=== PATIENT | male | born 1935 | race Caucasian/White ===

== ENCOUNTER 2019-01-09 08:41 | Emergency (ER) | payer MEDICARE ==
[~2019-01-09] VITALS: Ht 177.8 cm; Wt 108.0 kg
[~2019-01-09 08:41] MED LIST: ALBU90I INH; ASPI325 PO; BUME2 PO; CHLO25B PO; CLOP75 PO; DOCU100 PO; FEBU40TA; FURO20 PO; GUAI600T33 PO; HYDR1TAB94 PO; ISODIN10; Isosorbide Dini30 MG PO; Isosorbide Mono30 MG PO; LANOXIN125 MCG PO; MECL12.5 PO; METO100ER PO; NEBI10 PO; NEBI5 PO; NITR.6SL SL; POTCHL10ER PO; PRED5 PO; Percocet PO; Transderm-Scop1 EACH TD; WARF2.5 PO; WARF5 PO
[2019-01-09] MEDS ORDERED: GABA100 (09:49)
[2019-01-09 10:28] LABS: BASOPHILS ABSOLUTE AUTO 0.02 K/mm3 (0.00-0.23); BASOPHILS PERCENT AUTO 0 % (0-2); EOSINOPHILS ABSOLUTE AUTO 0.24 K/mm3 (0.00-0.68); EOSINOPHILS PERCENT AUTO 3 % (0-6); Hematocrit 42.9 % (37.0-53.0); IMMATURE GRAN ABSOLUTE AUTO 0.03 K/mm3 (0.00-0.10); IMMATURE GRAN PERCENT AUTO 0 % (0-1); LYMPHOCYTES ABSOLUTE AUTO 1.78 K/mm3 (0.84-5.20); LYMPHOCYTES PERCENT AUTO 25 % (21-46); MONOCYTES ABSOLUTE AUTO 0.58 K/mm3 (0.16-1.47); MONOCYTES PERCENT AUTO 8 % (4-13); Mean Corpuscular HGB 30.3 pg (26.0-34.0); Mean Corpuscular HGB Conc 32.6 g/dL (31.5-36.5); Mean Corpuscular Volume 93 fL (80-100); Mean Platelet Volume 9.6 fL (9.1-12.4); NEUTROPHILS ABSOLUTE AUTO 4.39 K/mm3 (1.96-9.15); NEUTROPHILS PERCENT AUTO 62 % (41-73); Platelet Count 177 K/mm3 (150-400); RDW Coefficient Variation 13.6 % (11.7-14.2); RDW Standard Deviation 45.8 fL (35.1-46.3); Red Blood Cell Count 4.62 M/mm3 (4.30-5.90); White Blood Cell Count 7.04 K/mm3 (4.00-11.30)
[2019-01-09 10:47] LABS: Alanine Aminotransfer (ALT/SGP 23 U/L (12-78); Albumin, Blood 3.3 g/dL (3.4-5.0); Alk Phos 78 U/L (50-136); Anion Gap 6 mmol/L (6-16); Aspartate Aminotrans (AST/SGOT 25 U/L (12-37); Bilirubin, Total 0.6 mg/dL (0.1-1.0); Blood Urea Nitrogen 24 mg/dL (8-24); Bun/Creatinine Ratio 22.9 (12.0-20.0); CO2, Blood 28 mmol/L (21-32); Calcium, Blood 8.1 mg/dL (8.5-10.1); Chloride, Blood 106 mmol/L (98-108); Creatinine, Blood 1.05 mg/dL (0.60-1.20); Globulin, Blood 3.3 g/dL (2.2-4.0); Glomerular Filtration Rate >60 (60-); Glucose, Blood 84 mg/dL (70-99); Potassium, Blood 3.7 mmol/L (3.5-5.5); Sodium, Blood 140 mmol/L (136-145); Total Protein, Blood 6.6 g/dL (6.4-8.2)
[2019-01-09] MEDS ORDERED: Keflex500 MG PO (11:23)
== END 2019-01-09 12:02 | disposition home or self-care (01) ==
LOC: ER 08:41
PROVIDERS: Emergency Medicine
DX: R60.0 Localized edema (principal); L03.116 Cellulitis of left lower limb; I48.91 Unspecified atrial fibrillation; I10 Essential (primary) hypertension; I25.10 Atherosclerotic heart disease of native coronary artery without angina pectoris; Z91.048 Other nonmedicinal substance allergy status; Z88.5 Allergy status to narcotic agent; Z79.899 Other long term (current) drug therapy; Z79.01 Long term (current) use of anticoagulants; Z87.891 Personal history of nicotine dependence
CPT/HCPCS: 71046; 80053; 83880; 85025; 93005; 93010; 96374; 99284-25; J1940

== ENCOUNTER → 2019-02-08 | Outpatient (CLI) | payer MEDICARE ==
[~2019-02-08] MED LIST changes: +GABA100; +Keflex500 MG PO
== END | disposition home or self-care (01) ==
LOC: LAB SHORT 08:34 → PLD 08:34
DX: C44.319 Basal cell carcinoma of skin of other parts of face (principal)
CPT/HCPCS: 88305

== ENCOUNTER 2019-03-02 04:39 | Inpatient (IN) | payer MEDICARE ==
[~2019-03-02] VITALS: Ht 177.8 cm; Wt 106.7 kg
[2019-03-02 05:27] LABS: BASOPHILS ABSOLUTE AUTO 0.04 K/mm3 (0.00-0.23); BASOPHILS PERCENT AUTO 1 % (0-2); EOSINOPHILS ABSOLUTE AUTO 0.13 K/mm3 (0.00-0.68); EOSINOPHILS PERCENT AUTO 2 % (0-6); Hematocrit 46.3 % (37.0-53.0); Hemoglobin 15.3 g/dL (13.5-17.5); IMMATURE GRAN ABSOLUTE AUTO 0.02 K/mm3 (0.00-0.10); IMMATURE GRAN PERCENT AUTO 0 % (0-1); LYMPHOCYTES ABSOLUTE AUTO 2.34 K/mm3 (0.84-5.20); LYMPHOCYTES PERCENT AUTO 31 % (21-46); MONOCYTES ABSOLUTE AUTO 0.65 K/mm3 (0.16-1.47); MONOCYTES PERCENT AUTO 9 % (4-13); Mean Corpuscular HGB 30.4 pg (26.0-34.0); Mean Corpuscular Volume 92 fL (80-100); Mean Platelet Volume 9.8 fL (9.1-12.4); NEUTROPHILS ABSOLUTE AUTO 4.42 K/mm3 (1.96-9.15); NEUTROPHILS PERCENT AUTO 58 % (41-73); Platelet Count 153 K/mm3 (150-400); RDW Coefficient Variation 13.6 % (11.7-14.2); RDW Standard Deviation 46.4 fL (35.1-46.3); Red Blood Cell Count 5.03 M/mm3 (4.30-5.90)
[2019-03-02 05:37] LABS: Alanine Aminotransfer (ALT/SGP 22 U/L (12-78); Albumin, Blood 3.7 g/dL (3.4-5.0); Albumin/Globulin Ratio 1.2 (0.8-1.8); Alk Phos 119 U/L (50-136); Anion Gap 6 mmol/L (6-16); Aspartate Aminotrans (AST/SGOT 24 U/L (12-37); Bilirubin, Total 0.5 mg/dL (0.1-1.0); Blood Urea Nitrogen 19 mg/dL (8-24); Bun/Creatinine Ratio 17.4 (12.0-20.0); CO2, Blood 29 mmol/L (21-32); Calcium, Blood 8.7 mg/dL (8.5-10.1); Chloride, Blood 107 mmol/L (98-108); Creatinine, Blood 1.09 mg/dL (0.60-1.20); Globulin, Blood 3.2 g/dL (2.2-4.0); Glomerular Filtration Rate >60 (60-); Glucose, Blood 102 mg/dL (70-99); Potassium, Blood 3.9 mmol/L (3.5-5.5); Sodium, Blood 142 mmol/L (136-145); Total Protein, Blood 6.9 g/dL (6.4-8.2)
[2019-03-02 07:11] LABS: International Normalized Ratio 3.06; Prothrombin Time Results 29.3 Sec (9.7-11.5)
[2019-03-02 13:26] LABS: Source, Urine Clean Catch
[2019-03-02 13:30] LABS: Appearance, Urine Clear (Clear); Bilirubin, Urine Neg (Neg); Blood, Urine Neg (Neg); Color, Urine Yellow (P-Yellow); Glucose Qualitative, Urine Neg (Neg); Ketones, Urine Neg (Neg); Leukocyte Esterase, Urine Neg (Neg); Nitrite, Urine Neg (Neg); Protein, Urine Neg (Neg); Urobilinogen, Urine NORM (Normal)
[2019-03-03 05:15] LABS: Hemoglobin 14.9 g/dL (13.5-17.5); Mean Corpuscular HGB 29.8 pg (26.0-34.0); Mean Corpuscular HGB Conc 32.4 g/dL (31.5-36.5); Mean Corpuscular Volume 92 fL (80-100); Mean Platelet Volume 9.6 fL (9.1-12.4); Platelet Count 142 K/mm3 (150-400); RDW Coefficient Variation 13.7 % (11.7-14.2); RDW Standard Deviation 46.1 fL (35.1-46.3); White Blood Cell Count 8.03 K/mm3 (4.00-11.30)
[2019-03-03 05:35] LABS: Albumin, Blood 3.6 g/dL (3.4-5.0); Albumin/Globulin Ratio 1.2 (0.8-1.8); Bilirubin, Total 1.2 mg/dL (0.1-1.0); Bun/Creatinine Ratio 10.3 (12.0-20.0); Calcium, Blood 8.3 mg/dL (8.5-10.1); Creatinine, Blood 1.26 mg/dL (0.60-1.20); Potassium, Blood 3.6 mmol/L (3.5-5.5); Total Protein, Blood 6.6 g/dL (6.4-8.2)
--- NOTE | 2019-03-03 06:50 | NUR ---
SHIFT SUMMARY: PT A&O X4, VS WNL. DENIES PAIN AND N/V THROUGHOUT SHIFT. ABX AND FLUIDS INFUSING. PT MARILU LIQUIDS. OOB TO BRP WITH CANE. MINIMAL ASSISTANCE. CT SCAN THIS MORNING COMPLETE.
--- NOTE | 2019-03-03 11:01 | NUR ---
Patient is lying in bed and alert, spouse, Joyce bedside. Patient openly shares about his medical history, his family/life history and his spiritual journey through the years. Patient seems to be in no spiritual/emotional distress but appeared to greatly enjoy conversation centered around God. I listened empathically, normalized patient's experience and provided prayer. Pateint responded well and showed signs of an elevated mood.
--- NOTE | 2019-03-03 18:32 | NUR ---
SHIFT SUMMARY PATIENT TOLERATING REG DIET TODAY W/O INCREASE IN PAIN OR NAUSEA. UP TO SHOWER. VOIDING. + FLATUS. DENIES NEED FOR PAIN MED. IN ROOM. NO C/O AT THIS TIME.
--- NOTE | 2019-03-04 07:07 | NUR ---
SHIFT SUMMARY PT RESTED WELL T/O NIGHT. AAOX4. TOLERATING DIET WELL. DENIES PAIN/NAUSEA. SBA TO AMBULATE IN ROOM. GOOD PO INTAKE + OUTPUT, IVF + ABX PER ORDERS. CALL LIGHT IN REACH. NO ACUTE CHANGES.
[2019-03-04] MEDS ORDERED: LEVFLO500 PO (10:32)
--- NOTE | 2019-03-04 11:15 | NUR ---
PATIENT D/C'D HOME WITH SPOUSE AT THIS TIME; BOTH STATE UNDERSTANDING OF MEDS, F/U APPT, CALL FOR CONCERNS. RX CALLED TO [facility]. NO ACUTE CHANGES OR C/O AT THIS TIME.
== END 2019-03-04 11:18 | disposition home or self-care (01) | DRG 395 ==
LOC: ER 04:39 → SURS 04:40
PROVIDERS: Emergency Medicine; ADMIT Internal Medicine
DX: K66.8 Other specified disorders of peritoneum (principal); I25.2 Old myocardial infarction; I48.91 Unspecified atrial fibrillation; I35.0 Nonrheumatic aortic (valve) stenosis; I10 Essential (primary) hypertension; I25.10 Atherosclerotic heart disease of native coronary artery without angina pectoris; Z79.01 Long term (current) use of anticoagulants
CPT/HCPCS: 36415; 74176; 74177; 80053; 81003; 85025; 85027; 85610; 96365; 96367; 96375; 99285-25; J0295; J1650; J2543; J3010; J7030; J7050; Q9967

== ENCOUNTER 2020-07-17 16:14 | Emergency (ER) | payer MEDICARE ==
[~2020-07-17] VITALS: Ht 177.8 cm; Wt 99.8 kg
[~2020-07-17 16:14] MED LIST changes: +LEVFLO500 PO; +LIDO700A20 TOP
[2020-07-17] MEDS ORDERED: VENLAFAXINE HC225 MG PO (16:47)
[2020-07-17 19:31] LABS: BASOPHILS ABSOLUTE AUTO 0.03 K/mm3 (0.00-0.23); BASOPHILS PERCENT AUTO 0 % (0-2); EOSINOPHILS ABSOLUTE AUTO 0.03 K/mm3 (0.00-0.68); EOSINOPHILS PERCENT AUTO 0 % (0-6); Hematocrit 47.8 % (37.0-53.0); Hemoglobin 16.3 g/dL (13.5-17.5); IMMATURE GRAN ABSOLUTE AUTO 0.06 K/mm3 (0.00-0.10); IMMATURE GRAN PERCENT AUTO 0 % (0-1); LYMPHOCYTES ABSOLUTE AUTO 1.69 K/mm3 (0.84-5.20); LYMPHOCYTES PERCENT AUTO 12 % (21-46); MONOCYTES PERCENT AUTO 6 % (4-13); Mean Corpuscular HGB 31.4 pg (26.0-34.0); Mean Corpuscular HGB Conc 34.1 g/dL (31.5-36.5); Mean Corpuscular Volume 92 fL (80-100); Mean Platelet Volume 9.9 fL (9.1-12.4); NEUTROPHILS ABSOLUTE AUTO 11.52 K/mm3 (1.96-9.15); NEUTROPHILS PERCENT AUTO 82 % (41-73); Platelet Count 179 K/mm3 (150-400); RDW Coefficient Variation 12.7 % (11.7-14.2); RDW Standard Deviation 43.1 fL (35.1-46.3); Red Blood Cell Count 5.19 M/mm3 (4.30-5.90); White Blood Cell Count 14.13 K/mm3 (4.00-11.30)
[2020-07-17 19:47] LABS: International Normalized Ratio 2.26; Prothrombin Time Results 23.1 Sec (9.7-11.5)
[2020-07-17 19:54] LABS: Alanine Aminotransfer (ALT/SGP 28 U/L (12-78); Albumin, Blood 3.8 g/dL (3.4-5.0); Albumin/Globulin Ratio 1.1 (0.8-1.8); Alk Phos 92 U/L (50-136); Anion Gap 5 mmol/L (6-16); Aspartate Aminotrans (AST/SGOT 27 U/L (12-37); Bilirubin, Total 0.7 mg/dL (0.1-1.0); Blood Urea Nitrogen 22 mg/dL (8-24); Bun/Creatinine Ratio 19.5 (12.0-20.0); CO2, Blood 30 mmol/L (21-32); Calcium, Blood 8.8 mg/dL (8.5-10.1); Chloride, Blood 106 mmol/L (98-108); Creatinine, Blood 1.13 mg/dL (0.60-1.20); Globulin, Blood 3.6 g/dL (2.2-4.0); Glomerular Filtration Rate >60 (60-); Glucose, Blood 109 mg/dL (70-99); Potassium, Blood 4.2 mmol/L (3.5-5.5); Sodium, Blood 141 mmol/L (136-145); Total Protein, Blood 7.4 g/dL (6.4-8.2); Troponin I <0.015 ng/mL (0.000-0.040)
[2020-07-17] MEDS ORDERED: Percocet 5-3251 EACH PO (21:56)
== END 2020-07-17 23:50 | disposition home or self-care (01) ==
LOC: ER 16:14
PROVIDERS: Emergency Medicine
DX: S22.32XA Fracture of one rib, left side, initial encounter for closed fracture (principal); Z79.899 Other long term (current) drug therapy; Z91.09 Other allergy status, other than to drugs and biological substances; Z88.5 Allergy status to narcotic agent; Z79.02 Long term (current) use of antithrombotics/antiplatelets; Z79.01 Long term (current) use of anticoagulants; W17.89XA Other fall from one level to another, initial encounter; Y93.89 Activity, other specified; Y92.003 Bedroom of unspecified non-institutional (private) residence as the place of occurrence of the external cause
CPT/HCPCS: 70450; 71101; 71260; 74177; 80053; 80162; 83735; 84484; 85025; 85610; 93005; 93010; 96374-59; 99284-25; A9270; J1170; Q9967

== ENCOUNTER 2020-09-19 10:52 | Inpatient (IN) | payer MEDICARE ==
[~2020-09-19] VITALS: Ht 177.8 cm; Wt 99.7 kg
[~2020-09-19 10:52] MED LIST changes: -FEBU40TA; -FURO20 PO; +FURO40 PO; +Percocet 5-3251 EACH PO; +Uloric80 MG PO; +VENLAFAXINE HC225 MG PO
[2020-09-19 11:19] LABS: Source, Urine Voided
[2020-09-19 11:28] LABS: Appearance, Urine Clear (Clear); Bilirubin, Urine Neg (Neg); Blood, Urine 2+ (Neg); Color, Urine Yellow (P-Yellow); Glucose Qualitative, Urine Neg (Neg); Ketones, Urine Neg (Neg); Leukocyte Esterase, Urine 1+ (Neg); Nitrite, Urine Neg (Neg); Protein, Urine 4+ (Neg); Specific Gravity, Urine 1.015 (1.003-1.022); Urobilinogen, Urine 2+ (Normal)
[2020-09-19] MEDS ORDERED: MECL25 PO (11:38)
[2020-09-19 11:43] LABS: Alanine Aminotransfer (ALT/SGP 25 U/L (12-78); Albumin, Blood 3.3 g/dL (3.4-5.0); Alk Phos 88 U/L (50-136); Anion Gap 6 mmol/L (6-16); Aspartate Aminotrans (AST/SGOT 30 U/L (12-37); Bilirubin, Total 0.8 mg/dL (0.1-1.0); Blood Urea Nitrogen 21 mg/dL (8-24); Bun/Creatinine Ratio 19.1 (12.0-20.0); CO2, Blood 26 mmol/L (21-32); Calcium, Blood 8.4 mg/dL (8.5-10.1); Chloride, Blood 109 mmol/L (98-108); Globulin, Blood 3.3 g/dL (2.2-4.0); Glomerular Filtration Rate >60 (60-); Glucose, Blood 104 mg/dL (70-99); International Normalized Ratio 1.73; Potassium, Blood 4.1 mmol/L (3.5-5.5); Prothrombin Time Results 17.9 Sec (9.7-11.5); Sodium, Blood 141 mmol/L (136-145); Total Protein, Blood 6.6 g/dL (6.4-8.2); Troponin I 0.039 ng/mL (0.000-0.040)
[2020-09-19 11:48] LABS: Bacteria Few /hpf; Squamous Epithelial Cells Not Seen /hpf (Few)
[2020-09-19 12:03] LABS: BASOPHILS ABSOLUTE AUTO 0.01 K/mm3 (0.00-0.23); BASOPHILS PERCENT AUTO 0 % (0-2); EOSINOPHILS PERCENT AUTO 0 % (0-6); Hematocrit 43.6 % (37.0-53.0); Hemoglobin 14.3 g/dL (13.5-17.5); IMMATURE GRAN ABSOLUTE AUTO 0.01 K/mm3 (0.00-0.10); IMMATURE GRAN PERCENT AUTO 0 % (0-1); LYMPHOCYTES ABSOLUTE AUTO 0.57 K/mm3 (0.84-5.20); LYMPHOCYTES PERCENT AUTO 10 % (21-46); MONOCYTES ABSOLUTE AUTO 0.47 K/mm3 (0.16-1.47); MONOCYTES PERCENT AUTO 8 % (4-13); Mean Corpuscular HGB 30.6 pg (26.0-34.0); Mean Corpuscular HGB Conc 32.8 g/dL (31.5-36.5); Mean Corpuscular Volume 93 fL (80-100); Mean Platelet Volume 10.4 fL (9.1-12.4); NEUTROPHILS ABSOLUTE AUTO 4.56 K/mm3 (1.96-9.15); NEUTROPHILS PERCENT AUTO 81 % (41-73); Platelet Count 87 K/mm3 (150-400); RDW Standard Deviation 44.4 fL (35.1-46.3); Red Blood Cell Count 4.67 M/mm3 (4.30-5.90); White Blood Cell Count 5.62 K/mm3 (4.00-11.30)
[2020-09-19 15:44] LABS: Influenza A, PCR Negative (NEGATIVE); Influenza B, PCR Negative (NEGATIVE); Resp Syncytial Virus, PCR Negative (NEGATIVE); SARS-Cov-2 (COVID-19) PCR, MMC Positive (NEGATIVE)
[2020-09-19] MEDS ORDERED: LANOXIN125 MCG PO (16:02)
[2020-09-19] MEDS ORDERED: Venlafaxine HC150 MG PO (16:02)
[2020-09-19] MEDS ORDERED: Potassium Chlo20 ME1 PO (16:03)
[2020-09-19] MEDS ORDERED: WARF5 PO (16:03)
--- NOTE | 2020-09-19 18:34 | NUR ---
CALLED ED AND RECIEVED TELEPHONE REPORT ON PT. AWAITING PT ARRIVAL. CALLED CERTIFIED TOWER CLIMBER PT WILL NEED THE DOOR CLOSED AND HAS Hx DEMENTIA WITH WEAKNESS OK TO PUT PT ON THE MONITORS FOR FALL RISK.
--- NOTE | 2020-09-19 19:23 | NUR ---
MIRTA ARRIVED TO THE FLOOR DURING SHIFT CHANGE, IS AT BEDSIDE. MIRTA ARRIVED VIA GURNEY AND WAS TRANSFERED TO BED USING A SLIDER SHEET. PER MIRTA HAS NOT BEEN FEELING WELL, SLOWING DOWN, POOR APPETITE, TO NOT EATING, LITTLE TO DRINK. CHANGE IN TASTE BUDS, COUGH DEVELOPED ON THURSDAY, SO SHE GOT AN APPOINTMENT WITH THE DOCTOR. HE ALSO HAS BECAME INCONTIENT WHICH IS ALSO ABNORMAL. THIS MORNING SHE WAS GETTING HIM OUT OF BED, WHEN HE COULD NOT GET UP, THEY TRIED SEVERAL TIMES TO THE POINT HE JUST SLIDE DOWN HER AND ONTO THE FLOOR. SHE CALLED THE AMBULANCE. HE HAS PNEUMONIA AND COVID-19. ISOLATION WAS SET UP PRIOR TO HIS ARRIVAL. IS VERY SUPPORTIVE AND AFRAID SHE MIGHT LOSE HIM. SHE DOES PLAN ON GETTING CHECKED BY HER DOCTOR THIS WEEK, SHE IS NOT SHOWING ANY SIGNS. MIRTA IS ALERT TO SELF, FAMILY AND FOLLOWS DIRECTION. HISTORY OF DEMENTIA. FACE IS FLUSHED. SKIN IS WARM TO THE TOUCH. LUNG SOUNDS ARE COURSE T/O. SOB, COUGH IS PRODUCTIVE BUT HE IS NOT GETTING IT ALL THE WAY OUT. RESP ARE SHALLOW AND RATTLING. HEART MURMUR NOTED. ABDOMIN SOFT, BT HYPOACTIVE. MILD ENEMA IN BLE. PRE KINDERGARTEN TEACHER AND FLEXTION WEAK ALL 4 EXTREMITITES. WILL BE BACK TOMORROW TO SEE HIM. ON CAMERA, BED ALARM ON, AND CALL LIGHT IN REACH.
[2020-09-20] MEDS ORDERED: Isosorbide Mono30 MG PO (01:49)
[2020-09-20] MEDS ORDERED: NITR.4SL SL (01:49)
[2020-09-20] MEDS ORDERED: Percocet 5-3251 EACH PO (01:50)
[2020-09-20] MEDS ORDERED: MECL25 PO (01:51)
[2020-09-20 05:26] LABS: BASOPHILS ABSOLUTE AUTO 0.02 K/mm3 (0.00-0.23); BASOPHILS PERCENT AUTO 0 % (0-2); EOSINOPHILS PERCENT AUTO 0 % (0-6); Hematocrit 47.1 % (37.0-53.0); IMMATURE GRAN ABSOLUTE AUTO 0.02 K/mm3 (0.00-0.10); IMMATURE GRAN PERCENT AUTO 0 % (0-1); LYMPHOCYTES ABSOLUTE AUTO 1.27 K/mm3 (0.84-5.20); LYMPHOCYTES PERCENT AUTO 25 % (21-46); MONOCYTES ABSOLUTE AUTO 0.72 K/mm3 (0.16-1.47); MONOCYTES PERCENT AUTO 14 % (4-13); Mean Corpuscular HGB 30.5 pg (26.0-34.0); Mean Corpuscular HGB Conc 31.8 g/dL (31.5-36.5); Mean Corpuscular Volume 96 fL (80-100); Mean Platelet Volume 10.5 fL (9.1-12.4); NEUTROPHILS ABSOLUTE AUTO 3.04 K/mm3 (1.96-9.15); NEUTROPHILS PERCENT AUTO 60 % (41-73); Platelet Count 83 K/mm3 (150-400); RDW Coefficient Variation 13.1 % (11.7-14.2); RDW Standard Deviation 46.5 fL (35.1-46.3); Red Blood Cell Count 4.91 M/mm3 (4.30-5.90); White Blood Cell Count 5.07 K/mm3 (4.00-11.30)
[2020-09-20 05:37] LABS: PCO2 Arterial 39.3 mmHg (35-45); PO2 Arterial 75.3 mmHg (80-100); pH Blood Arterial 7.42 (7.35-7.45)
[2020-09-20 05:44] LABS: Anion Gap 5 mmol/L (6-16); Blood Urea Nitrogen 21 mg/dL (8-24); Bun/Creatinine Ratio 20.4 (12.0-20.0); CO2, Blood 30 mmol/L (21-32); Calcium, Blood 8.3 mg/dL (8.5-10.1); Chloride, Blood 106 mmol/L (98-108); Creatinine, Blood 1.03 mg/dL (0.60-1.20); Glomerular Filtration Rate >60 (60-); Glucose, Blood 68 mg/dL (70-99); Potassium, Blood 3.6 mmol/L (3.5-5.5); Sodium, Blood 141 mmol/L (136-145)
[2020-09-20 05:45] LABS: International Normalized Ratio 1.72; Prothrombin Time Results 17.8 Sec (9.7-11.5)
--- NOTE | 2020-09-20 07:40 | NUR ---
SHIFT SUMMARY: MIRTA IS ALERT, FOLLOWS DIRECTION AND DID REMEMBER HE WAS IN THE HOSPITAL BUT DOES NOT KNOW WHY. HE FOREGETS HE HAS TO CALL TO GET UP THAT HE IS TO WEAK TO STAND. CAMERA LETS US KNOW WHEN HE STARTS SWINGING HIS LEG OVER AND WERE ABLE TO OPEN THE DOOR TO LET HIM KNOW WE ARE COMING, AND HE STAYS IN BED. CONTIENT/INCONTIENT OF URINE. VERY CONCERTRATED URINE, DARK ORANGE AND URINATES ONLY 100-200 AT A TIME. SOME OF THE TIME HE IS NOT ABLE TO GO OTHER THEN DRIBBLES. LUNG SOUNDS COURSE T/O, COUGH IS MOIST BUT NOT PRODUCTIVE, UNABLE TO GET IT ALL THE WAY OUT. POOR APPETITE, SEVERE WEAKNESS IN EXTREMITIES. YEAST RASH NOTED IN GROIN, WILL NEED NYSTATIN, ORANGE ZINC CREAM APPLIED. BILATERAL CALF'S AND FEET AREA PURPLE AND COLD TO TOUCH BUT HAS GOOD PULSES. OXYGEN REMAINED ON 2 LITERS THIS SHIFT, VITALS WERE STABLE, AFEBRILE. ORAL CARE WAS PROVIDED AND SIPS OF WATER WERE GIVEN. REPOSITIONED EVERY 2 HOURS. FOLLOWS DIRECTION WELL. REPORT GIVEN TO DAY SHIFT. CALL LIGHT IS IN REACH, HE FORGETS TO USE IT. BED ALARM IS ON AND CAMERA ON.
--- NOTE | 2020-09-20 16:24 | NUR ---
PT HAS SHOWN AN INCREASE IN ORIENTATION TODAY. COVID POSSITIVE SO CARE IS BEING GROUPED WHEN POSSIBLE. PT FREQUENTLY TRIES TO GET OUT OF BED BED ALARM AND CAMERA MONITORING FOR SAFETY. PT PLACED IN CHAIR WITH SPOUSE AT HIS SIDE BY PT/OT. PT TRANSFERED HIMSELF BACK TO BED SPOUSE JUST WATCHED, PER CAMERA PUBLICATIONS EDITOR. CHAIR ALARM NEEDED FOR SAFETY. WILL PLACE ON IN THE ROOM FOR FUTURE USE. PT SPOUSE HAS BEEN AT HIS SIDE FOR MOST OF THE DAY, SHE JUST LEFT FOR A DR APPOINTMENT AND WILL BE BACK SOON. PT SEEMS MORE ORINETED WHEN THE SPOUSE IS PRESENT TO ANCHOR HIM. IV LINES OBSCURED WITH COBAN PT HAS DECIDED SOMEONE SAID THEY WOULD TAKE THOSE OUT. HE HAS PULLED AT THE DRESSINGS A LITTLE. PT IS CURRENTLY IN BED, CALL LIGHT IN REACH, BED ALARM AND CAMER FOR SAFETY. PT HAS BEEN AGREEABLE WITH ALL CARE. AT ONE POINT THIS MORNING THE PT SEEMED TO BE BREATHING FAST EVEN AND SHALLOW BREATHS. RT CAME AND EVALUATED THE PT ALL OTHER VITALS STABLE. NO S&S OF DISTREE HAVE BEEN NOTED T/O THE DAY SOMETIMES PT RESP RATE IS ELEVATED BUT SATS MAINTAIN ON 2L O2 VIA NC. WILL CTM AND PASS ON IN REPORT TO NIGHT RN.
--- NOTE | 2020-09-20 19:42 | NUR ---
recieved a call from the pt spouse she just tested positive for covid and is no longer allowed to visit. pt informed that his can not visit because the rules do not allow her to visit now.
[2020-09-21 05:10] LABS: Hematocrit 45.8 % (37.0-53.0); Hemoglobin 15.4 g/dL (13.5-17.5); Mean Corpuscular HGB 31.1 pg (26.0-34.0); Mean Corpuscular HGB Conc 33.6 g/dL (31.5-36.5); Mean Corpuscular Volume 93 fL (80-100); Mean Platelet Volume 9.9 fL (9.1-12.4); Platelet Count 93 K/mm3 (150-400); RDW Coefficient Variation 12.7 % (11.7-14.2); RDW Standard Deviation 43.5 fL (35.1-46.3); Red Blood Cell Count 4.95 M/mm3 (4.30-5.90); White Blood Cell Count 3.88 K/mm3 (4.00-11.30)
[2020-09-21 05:27] LABS: International Normalized Ratio 2.34; Prothrombin Time Results 23.9 Sec (9.7-11.5)
[2020-09-21 05:32] LABS: Anion Gap 6 mmol/L (6-16); Blood Urea Nitrogen 28 mg/dL (8-24); Bun/Creatinine Ratio 24.3 (12.0-20.0); CO2, Blood 28 mmol/L (21-32); Calcium, Blood 8.4 mg/dL (8.5-10.1); Chloride, Blood 105 mmol/L (98-108); Creatinine, Blood 1.15 mg/dL (0.60-1.20); Glomerular Filtration Rate >60 (60-); Glucose, Blood 114 mg/dL (70-99); Phosphorus, Blood 3.1 mg/dL (2.5-4.9); Potassium, Blood 4.1 mmol/L (3.5-5.5); Sodium, Blood 139 mmol/L (136-145)
--- NOTE | 2020-09-21 06:53 | NUR ---
09/21/20 0545 PT PLEASANTLY CONFUSED THIS SHIFT. COOPERATIVE AND DENIES ANY DISCOMFORT OR S/S. VITALS STABLE. TURNED Q 2 HOURS. PT KEPT TAKING OFF 02 AT 2LPN VIA N/C. THIS AM, O2 SATS WERE 94% ON ROOM AIR. O2 KEPT OFF. INCONTINENT OF URINE AND OCC. CONTINENT IN URINAL. TAKING ORAL INTAKE WELL. ISOLATION MAINTAINED.
--- NOTE | 2020-09-21 18:36 | NUR ---
SHIFT SUMMARY. A&OX3, PLEASANT AND COOPERATIVE WITH CARE, ONE ASSIST TO BATHROOM. IMPULSIVE AT TIMES, BED AND CHAIR ALARM UTILIZED FOR SAFETY. PT DENIES PAIN, SOB, N/V. GOOD ORAL INTAKE. NO NEW CHANGES OR CONCERNS.
[2020-09-22 05:23] LABS: International Normalized Ratio 2.8; Prothrombin Time Results 28.3 Sec (9.7-11.5)
--- NOTE | 2020-09-22 18:15 | NUR ---
SHIFT SUMMARY PATIENT DENIES PAIN, NAUSEA, AND SHORTNESS OF BREATH. PATIENT INTERMITTENTLY CONFUSED BUT PLEASANT AND COOPERATIVE WITH CARE. WORKED WITH PT, UP SBA W/FWW TO BR. EATING AND DRINKING WELL.
[2020-09-23 05:35] LABS: International Normalized Ratio 3.49; Prothrombin Time Results 34.8 Sec (9.7-11.5)
--- NOTE | 2020-09-23 06:28 | NUR ---
BREASTER SUMMARY Patient OOB around 5 times last night to urinate. each time setting off alarm. staff find patient trying to stand independently while trying to push off night table. Patient very agreeable, but has extreme urge incontinence and tries to ush past us each time on unsteady feet towards bathroom. No complaints of pain or discomfort. but obviously SOB by the time he gets back from the toilet. Lung sounds still coarse on Room Air, but definately sound improved.
--- NOTE | 2020-09-23 16:19 | NUR ---
SHIFT SUMMARY PATIENT DENIES PAIN, NAUSEA, AND SHORTNESS OF BREATH. PATIENT UP SBA W/FWW TO BR. EATING AND DRINKING WELL. PLEASANTLY CONFUSED. POSSIBLE DISCHARGE TOMORROW.
[2020-09-24 05:14] LABS: International Normalized Ratio 3.13; Prothrombin Time Results 31.4 Sec (9.7-11.5)
--- NOTE | 2020-09-24 07:42 | NUR ---
TRUCK RENTAL CLERK SUMMARY Maynor slept well overnight, getting up with staff and using call light to ask staff to walk with him to bathroom. Still gets very SOB with minimal exertion, but 02 SAT remains above 90%. No complaints of pain. Pleasant and cooperative with care.
--- NOTE | 2020-09-24 16:08 | NUR ---
DISCHARGE DISCHARGE MEDICATIONS AND INSTRUCTIONS EXPLAINED TO PATIENT. PATIENT'S UPDATED VIA PHONE. PCP FOLLOW UP SCHEDULED. IV REMOVED WITHOUT DIFFICULTY. BELONGINGS WT PATIENT. PATIENT TRANSFERED TO PRIVATE VEHICLE VIA WHEELCHAIR.
== END 2020-09-24 16:03 | disposition home health service (06) | DRG 177 ==
LOC: ER 10:52 → MEDS 10:54
PROVIDERS: Emergency Medicine; ADMIT Internal Medicine
PROC: XW033E5 Introduction of Remdesivir Anti-infective into Peripheral Vein, Percutaneous Approach, New Technology Group 5 (ICD-10-PCS; principal; 2020-09-19)
DX: U07.1 COVID-19 (principal); J96.01 Acute respiratory failure with hypoxia; I48.20 Chronic atrial fibrillation, unspecified; I50.32 Chronic diastolic (congestive) heart failure; I11.0 Hypertensive heart disease with heart failure; Z66 Do not resuscitate; D69.6 Thrombocytopenia, unspecified; E66.9 Obesity, unspecified; F03.90 Unspecified dementia, unspecified severity, without behavioral disturbance, psychotic disturbance, mood disturbance, and anxiety; F32.9 Major depressive disorder, single episode, unspecified; I25.10 Atherosclerotic heart disease of native coronary artery without angina pectoris; I35.0 Nonrheumatic aortic (valve) stenosis; Z86.718 Personal history of other venous thrombosis and embolism; Z87.891 Personal history of nicotine dependence; Z79.01 Long term (current) use of anticoagulants; Z95.5 Presence of coronary angioplasty implant and graft; Z68.30 Body mass index [BMI] 30.0-30.9, adult
CPT/HCPCS: 0241U; 36415; 36600; 71045; 80048; 80053; 80069; 81001; 82803; 82947; 83880; 84484; 85025; 85027; 85610; 87086; 93005; 93010; 94760; 96365; 96376; 97110; 97116; 97162; 97165; 97530; 97535; 99285-25; A9270-GY; G0378

== ENCOUNTER 2020-11-15 07:02 | Inpatient (IN) | payer MEDICARE ==
[~2020-11-15] VITALS: Ht 177.8 cm; Wt 95.5 kg
[~2020-11-15 07:02] MED LIST changes: +MECL25 PO; +NITR.4SL SL; +Potassium Chlo20 ME1 PO; +Venlafaxine HC150 MG PO
[2020-11-15 07:49] LABS: BASOPHILS ABSOLUTE AUTO 0.04 K/mm3 (0.00-0.23); BASOPHILS PERCENT AUTO 1 % (0-2); EOSINOPHILS ABSOLUTE AUTO 0.12 K/mm3 (0.00-0.68); EOSINOPHILS PERCENT AUTO 1 % (0-6); Hematocrit 43.2 % (37.0-53.0); Hemoglobin 13.8 g/dL (13.5-17.5); IMMATURE GRAN ABSOLUTE AUTO 0.03 K/mm3 (0.00-0.10); IMMATURE GRAN PERCENT AUTO 0 % (0-1); LYMPHOCYTES PERCENT AUTO 22 % (21-46); MONOCYTES ABSOLUTE AUTO 0.79 K/mm3 (0.16-1.47); MONOCYTES PERCENT AUTO 9 % (4-13); Mean Corpuscular HGB 30.1 pg (26.0-34.0); Mean Corpuscular HGB Conc 31.9 g/dL (31.5-36.5); Mean Corpuscular Volume 94 fL (80-100); Mean Platelet Volume 10.1 fL (9.1-12.4); NEUTROPHILS ABSOLUTE AUTO 5.64 K/mm3 (1.96-9.15); NEUTROPHILS PERCENT AUTO 66 % (41-73); Platelet Count 190 K/mm3 (150-400); RDW Coefficient Variation 13.6 % (11.7-14.2); RDW Standard Deviation 46.6 fL (35.1-46.3); Red Blood Cell Count 4.59 M/mm3 (4.30-5.90); White Blood Cell Count 8.52 K/mm3 (4.00-11.30)
[2020-11-15 08:13] LABS: Alanine Aminotransfer (ALT/SGP 17 U/L (12-78); Albumin, Blood 3.2 g/dL (3.4-5.0); Albumin/Globulin Ratio 0.8 (0.8-1.8); Alk Phos 116 U/L (50-136); Anion Gap 7 mmol/L (6-16); Aspartate Aminotrans (AST/SGOT 16 U/L (12-37); Bilirubin, Total 0.8 mg/dL (0.1-1.0); Blood Urea Nitrogen 22 mg/dL (8-24); Bun/Creatinine Ratio 21.2 (12.0-20.0); CO2, Blood 28 mmol/L (21-32); Calcium, Blood 8.8 mg/dL (8.5-10.1); Chloride, Blood 109 mmol/L (98-108); Creatinine, Blood 1.04 mg/dL (0.60-1.20); Globulin, Blood 4.2 g/dL (2.2-4.0); Glomerular Filtration Rate >60 (60-); Glucose, Blood 113 mg/dL (70-99); Potassium, Blood 3.7 mmol/L (3.5-5.5); Sodium, Blood 144 mmol/L (136-145); Total Protein, Blood 7.4 g/dL (6.4-8.2)
[2020-11-15] MEDS ORDERED: FEBU40TA (08:49)
[2020-11-15 10:16] LABS: Source, Urine Voided
[2020-11-15 10:18] LABS: International Normalized Ratio 1.96; Prothrombin Time Results 20.2 Sec (9.7-11.5)
[2020-11-15 10:23] LABS: Bilirubin, Urine Neg (Neg); Blood, Urine 1+ (Neg); Glucose Qualitative, Urine Neg (Neg); Ketones, Urine Neg (Neg); Leukocyte Esterase, Urine 1+ (Neg); Nitrite, Urine Neg (Neg); Protein, Urine 2+ (Neg); Urobilinogen, Urine 2+ (Normal)
[2020-11-15 10:29] LABS: Appearance, Urine Clear (Clear); Color, Urine Yellow (P-Yellow)
[2020-11-15 10:32] LABS: Bacteria Rare /hpf; Red Blood Cells, Urine 0-2 /hpf (0-2); Squamous Epithelial Cells Rare /hpf (Few); White Blood Cells, Urine 0-2 /hpf (0-5)
[2020-11-15 10:33] LABS: Digoxin (Lanoxin) 0.62 ug/mL (0.80-2.00)
[2020-11-15 10:56] LABS: Influenza A, PCR Negative (NEGATIVE); Influenza B, PCR Negative (NEGATIVE); Resp Syncytial Virus, PCR Negative (NEGATIVE); SARS-Cov-2 (COVID-19) PCR, MMC Negative (NEGATIVE)
[2020-11-15] MEDS ORDERED: FEBUXOSTAT80 MG PO (11:39)
[2020-11-15] MEDS ORDERED: ISOSORBIDE MONO30 MG PO (11:39)
[2020-11-15] MEDS ORDERED: Nitrostat0.4 MG SL (13:03)
[2020-11-15] MEDS ORDERED: MECL25 PO (13:05)
[2020-11-15] MEDS ORDERED: Percocet 5-3251 EACH PO (13:06)
--- NOTE | 2020-11-15 13:23 | NUR ---
PT ARRIVED TO UNIT FROM ED TRANSFERRED WITH ONE PERSON ASSIST FROM WC TO BED. REPORTS PAIN "OKAY" AT THIS TIME BUT COMES INTERMITTENTLY. DENIES N/V AT THIS TIME. HYPERTENSIVE AND TACHY. MEDS ADMINISTERED PER ORDERS. SPOUSE AT BEDSIDE. REPORTS PT HAS HX OF DEMENTIA AND BECOMES CONFUSED AT TIMES. REPORTS TWO FALLS AT HOME IN LAST WEEK. CALL LIGHT IN REACH.
--- NOTE | 2020-11-15 18:28 | NUR ---
SUMMARY NO ACUTE CHANGES SINCE ARRIVING TO FLOOR FROM ED. ADMINISTERED MEDS PER ORDERS. PT SIPPING CLEAR LIQUIDS. AMBULATED TO RESTROOM AND VOIDED ONCE SINCE ARRIVING TO UNIT W/USE OF FWW. PASSING FLATUS. TELE SHOWS AFIB. PT'S REPORTS PT FORGETFUL AT TIMES/HX OF DEMENTIA. BED ALARM ON. CALL LIGHT IN REACH.
[2020-11-16 04:50] LABS: Hematocrit 42.2 % (37.0-53.0); Hemoglobin 13.7 g/dL (13.5-17.5); Mean Corpuscular HGB 30.7 pg (26.0-34.0); Mean Corpuscular HGB Conc 32.5 g/dL (31.5-36.5); Mean Corpuscular Volume 95 fL (80-100); Mean Platelet Volume 9.7 fL (9.1-12.4); Platelet Count 221 K/mm3 (150-400); RDW Coefficient Variation 13.4 % (11.7-14.2); Red Blood Cell Count 4.46 M/mm3 (4.30-5.90); White Blood Cell Count 9.22 K/mm3 (4.00-11.30)
[2020-11-16 05:06] LABS: International Normalized Ratio 1.8; Prothrombin Time Results 18.6 Sec (9.7-11.5)
[2020-11-16 05:20] LABS: Anion Gap 5 mmol/L (6-16); Blood Urea Nitrogen 16 mg/dL (8-24); Bun/Creatinine Ratio 14.8 (12.0-20.0); CO2, Blood 29 mmol/L (21-32); Chloride, Blood 109 mmol/L (98-108); Creatinine, Blood 1.08 mg/dL (0.60-1.20); Glomerular Filtration Rate >60 (60-); Glucose, Blood 100 mg/dL (70-99); Magnesium, Blood 2.2 mg/dL (1.6-2.4); Potassium, Blood 3.8 mmol/L (3.5-5.5); Sodium, Blood 143 mmol/L (136-145)
[2020-11-16 05:36] LABS: BAND PERCENT MAN 2 % (0-8); BASOPHILS ABSOLUTE MAN 0.09 K/mm3 (0.00-0.23); BASOPHILS PERCENT MAN 1 % (0-2); EOSINOPHILS PERCENT MAN 0 % (0-6); LYMPHOCYTES ABSOLUTE MAN 1.47 K/mm3 (0.84-5.20); LYMPHOCYTES PERCENT MAN 16 % (21-46); MONOCYTES ABSOLUTE MAN 0.46 K/mm3 (0.16-1.47); MONOCYTES PERCENT MAN 5 % (4-13); NEUTROPHILS ABSOLUTE MAN 7.19 K/mm3 (1.96-9.15); SEG NEUTROPHILS PERCENT MAN 76 % (41-73); TOTAL CELLS COUNTED 100
--- NOTE | 2020-11-16 06:55 | NUR ---
SUMMARY PASSING LIQ BROWN BMS AFTER FINAL DOSE LACTULOSE. BED ALARM AND TAB ALARM IN USE,
--- NOTE | 2020-11-16 07:55 | NUR ---
pt sleeping wakes briefly to verbal stimuli then falls back to sleep
--- NOTE | 2020-11-16 09:49 | NUR ---
dr ellsworth by to see pt pt more awake asking about his we tried to call her left a message ok to go home per surgical stand point pt sitting on edge of the bed eating cl diet
--- NOTE | 2020-11-16 10:46 | NUR ---
updated pt re pt's visit with dr ellsworth
--- NOTE | 2020-11-16 11:19 | NUR ---
dr culp called for speech therapy consult
--- NOTE | 2020-11-16 12:01 | NUR ---
SPEECH THERAPY BY TO SEE PT EVAL AT BEDSIDE UNABLE TO HAVE BARIUM TODAY REQ OUT PT NOT AVAIL TILL NON AWAITING DR COHEN
--- NOTE | 2020-11-16 13:41 | NUR ---
ground mech soft tray given to pt req by speech
--- NOTE | 2020-11-16 14:31 | NUR ---
Spiritual care visit conducted. Patient is lying in bed and alert. Patient's spouse, Joyce, is bedside and explains quietly that patient is has a hearing deficit and has dementia. Patient tells me about the falls and back pain, Joyce fills in the info about patient's Diverticulitis. Joyce then shares about their spiiritual journey and their affiliation with the [facility]. Joyce talks about taking patient home today or tomorrow and her concerns for the future. I provide companionship and prayer. Patient and Joyce respond well and show signs of improved peace. I will continue to remain available to patient and family.
--- NOTE | 2020-11-16 15:34 | NUR ---
req inf re his t12 fx to his spine gave her the ct report then also showed her where t12 is located on the body
--- NOTE | 2020-11-16 16:46 | NUR ---
dr culp by to see pt
[2020-11-16] MEDS ORDERED: LACT PO (17:00)
[2020-11-16] MEDS ORDERED: AMOCLA875 PO (17:00)
[2020-11-16] MEDS ORDERED: Sen-O-Tab8.6 MG PO (17:01)
[2020-11-16] MEDS ORDERED: DOCU100 PO (17:01)
--- NOTE | 2020-11-16 17:19 | NUR ---
DISCHARGE INSTRUCTIONS REVIEWED WITH PT AND NO ACUTE CHANGES WC ESCORT TO CAR RX CALLED TO [facility]
== END 2020-11-16 17:18 | disposition home or self-care (01) | DRG 199 ==
LOC: ER 07:02 → SURS 10:06
PROVIDERS: Emergency Medicine; Nurse Practitioner Acute Care; Surgery; ADMIT Hospitalist
DX: J98.2 Interstitial emphysema (principal); J69.0 Pneumonitis due to inhalation of food and vomit; K57.80 Diverticulitis of intestine, part unspecified, with perforation and abscess without bleeding; S22.42XA Multiple fractures of ribs, left side, initial encounter for closed fracture; S22.089A Unspecified fracture of T11-T12 vertebra, initial encounter for closed fracture; I50.32 Chronic diastolic (congestive) heart failure; I48.20 Chronic atrial fibrillation, unspecified; Z20.822 Contact with and (suspected) exposure to COVID-19; K66.8 Other specified disorders of peritoneum; K59.09 Other constipation; I25.10 Atherosclerotic heart disease of native coronary artery without angina pectoris; I11.0 Hypertensive heart disease with heart failure; I35.0 Nonrheumatic aortic (valve) stenosis; F03.90 Unspecified dementia, unspecified severity, without behavioral disturbance, psychotic disturbance, mood disturbance, and anxiety; E66.01 Morbid (severe) obesity due to excess calories; F32.9 Major depressive disorder, single episode, unspecified; M10.9 Gout, unspecified; W19.XXXA Unspecified fall, initial encounter; Z86.16 Personal history of COVID-19; Z88.5 Allergy status to narcotic agent; Z95.5 Presence of coronary angioplasty implant and graft; Z79.899 Other long term (current) drug therapy; Z79.01 Long term (current) use of anticoagulants; Z79.02 Long term (current) use of antithrombotics/antiplatelets; Z79.891 Long term (current) use of opiate analgesic; Z86.718 Personal history of other venous thrombosis and embolism; Z68.25 Body mass index [BMI] 25.0-25.9, adult
CPT/HCPCS: 0241U; 36415; 71045; 74177; 80048; 80053; 80162; 81001; 83690; 83735; 84145; 84550; 85007; 85025; 85027; 85610; 85730; 86140; 87086; 92610; 96365-59; 99285-25; A9270; J2543; J7050; Q9967

== ENCOUNTER 2021-01-04 17:39 | Observation (INO) | payer MEDICARE ==
[~2021-01-04] VITALS: Ht 177.8 cm; Wt 89.4 kg
[~2021-01-04 17:39] MED LIST changes: +AMOCLA875 PO; +FEBU40TA; +FEBUXOSTAT80 MG PO; +ISOSORBIDE MONO30 MG PO; +LACT PO; +Nitrostat0.4 MG SL; +Sen-O-Tab8.6 MG PO
[2021-01-04 18:51] LABS: International Normalized Ratio 2.31; Prothrombin Time Results 23.6 Sec (9.7-11.5)
[2021-01-04 21:56] LABS: BASOPHILS ABSOLUTE AUTO 0.03 K/mm3 (0.00-0.23); BASOPHILS PERCENT AUTO 0 % (0-2); EOSINOPHILS ABSOLUTE AUTO 0.12 K/mm3 (0.00-0.68); EOSINOPHILS PERCENT AUTO 1 % (0-6); Hematocrit 46.2 % (37.0-53.0); Hemoglobin 14.8 g/dL (13.5-17.5); IMMATURE GRAN ABSOLUTE AUTO 0.03 K/mm3 (0.00-0.10); IMMATURE GRAN PERCENT AUTO 0 % (0-1); LYMPHOCYTES ABSOLUTE AUTO 2.55 K/mm3 (0.84-5.20); LYMPHOCYTES PERCENT AUTO 29 % (21-46); MONOCYTES ABSOLUTE AUTO 0.74 K/mm3 (0.16-1.47); MONOCYTES PERCENT AUTO 8 % (4-13); Mean Corpuscular HGB 29.9 pg (26.0-34.0); Mean Corpuscular Volume 93 fL (80-100); Mean Platelet Volume 10.4 fL (9.1-12.4); NEUTROPHILS ABSOLUTE AUTO 5.31 K/mm3 (1.96-9.15); NEUTROPHILS PERCENT AUTO 61 % (41-73); Platelet Count 181 K/mm3 (150-400); RDW Coefficient Variation 13.6 % (11.7-14.2); RDW Standard Deviation 46.8 fL (35.1-46.3); Red Blood Cell Count 4.95 M/mm3 (4.30-5.90); White Blood Cell Count 8.78 K/mm3 (4.00-11.30)
[2021-01-04 22:08] LABS: Alanine Aminotransfer (ALT/SGP 23 U/L (12-78); Albumin, Blood 3.6 g/dL (3.4-5.0); Albumin/Globulin Ratio 0.9 (0.8-1.8); Alk Phos 144 U/L (50-136); Anion Gap 4 mmol/L (6-16); Aspartate Aminotrans (AST/SGOT 25 U/L (12-37); Bilirubin, Total 0.5 mg/dL (0.1-1.0); Blood Urea Nitrogen 20 mg/dL (8-24); Bun/Creatinine Ratio 16.8 (12.0-20.0); CO2, Blood 32 mmol/L (21-32); Calcium, Blood 9.1 mg/dL (8.5-10.1); Chloride, Blood 105 mmol/L (98-108); Creatinine, Blood 1.19 mg/dL (0.60-1.20); Glomerular Filtration Rate >60 (60-); Glucose, Blood 111 mg/dL (70-99); Potassium, Blood 4.3 mmol/L (3.5-5.5); Sodium, Blood 141 mmol/L (136-145); Total Protein, Blood 7.6 g/dL (6.4-8.2)
[2021-01-05 00:28] LABS: Digoxin (Lanoxin) 0.78 ug/mL (0.80-2.00)
[2021-01-05 00:30] LABS: Source, Urine Clean Catch
[2021-01-05 00:38] LABS: Appearance, Urine Clear (Clear); Bilirubin, Urine Neg (Neg); Blood, Urine Neg (Neg); Color, Urine Yellow (P-Yellow); Glucose Qualitative, Urine Neg (Neg); Ketones, Urine Neg (Neg); Leukocyte Esterase, Urine Neg (Neg); Nitrite, Urine Neg (Neg); Protein, Urine Neg (Neg); Urobilinogen, Urine NORM (Normal)
[2021-01-05 01:36] LABS: International Normalized Ratio 2.42; Prothrombin Time Results 24.6 Sec (9.7-11.5)
--- NOTE | 2021-01-05 04:55 | NUR ---
TEACHER'S AIDE SUMMARY PT ADMITTED FROM ED AT 0002 THIS SHIFT, RECEIVED REPORT FROM LOBO TANG. PT A&OX3, FORGETFUL AT TIMES. PT PLEASANT AND COOPERATIVE TO CARE. PT ATTEMPTED TO BED EXIT THIS SHIFT BUT WAS SAFELY REDIRECTED BY STAFF TO BED, PT EDUCATED ON PROPER USE OF CALL LIGHT. PT MEDICATED FOR BACK PAIN PER EMAR, PT 2P MAX ASSIST WITH BED MOBILITY AND DURING TRANSFERS D/T SEVERE BACK PAIN W/ MOVEMENT. NO C/O CP, SOB, OR N&V. PT INCONTINENT OF B&B, ATTENDS IN PLACE. PT CURRENTLY RESTING IN BED AT THIS TIME. BED AT LOWEST POSITION, ALARMS ON. CALL LIGHT WITHIN REACH. PT's AT BEDSIDE DURING ADMISSION.
[2021-01-05 05:06] LABS: BASOPHILS ABSOLUTE AUTO 0.04 K/mm3 (0.00-0.23); BASOPHILS PERCENT AUTO 0 % (0-2); EOSINOPHILS ABSOLUTE AUTO 0.06 K/mm3 (0.00-0.68); EOSINOPHILS PERCENT AUTO 1 % (0-6); Hematocrit 44.1 % (37.0-53.0); Hemoglobin 14.3 g/dL (13.5-17.5); IMMATURE GRAN ABSOLUTE AUTO 0.03 K/mm3 (0.00-0.10); IMMATURE GRAN PERCENT AUTO 0 % (0-1); LYMPHOCYTES ABSOLUTE AUTO 2.28 K/mm3 (0.84-5.20); LYMPHOCYTES PERCENT AUTO 21 % (21-46); MONOCYTES ABSOLUTE AUTO 1.12 K/mm3 (0.16-1.47); MONOCYTES PERCENT AUTO 10 % (4-13); Mean Corpuscular HGB 30.1 pg (26.0-34.0); Mean Corpuscular HGB Conc 32.4 g/dL (31.5-36.5); Mean Corpuscular Volume 93 fL (80-100); Mean Platelet Volume 10.2 fL (9.1-12.4); NEUTROPHILS ABSOLUTE AUTO 7.34 K/mm3 (1.96-9.15); NEUTROPHILS PERCENT AUTO 67 % (41-73); Platelet Count 166 K/mm3 (150-400); RDW Coefficient Variation 13.3 % (11.7-14.2); RDW Standard Deviation 45.4 fL (35.1-46.3); Red Blood Cell Count 4.75 M/mm3 (4.30-5.90); White Blood Cell Count 10.87 K/mm3 (4.00-11.30)
[2021-01-05 06:00] LABS: Albumin, Blood 3.2 g/dL (3.4-5.0); Albumin/Globulin Ratio 0.9 (0.8-1.8); Bilirubin, Total 0.5 mg/dL (0.1-1.0); Bun/Creatinine Ratio 16.2 (12.0-20.0); Calcium, Blood 8.4 mg/dL (8.5-10.1); Creatinine, Blood 1.3 mg/dL (0.60-1.20); Globulin, Blood 3.6 g/dL (2.2-4.0); Potassium, Blood 4.2 mmol/L (3.5-5.5); Total Protein, Blood 6.8 g/dL (6.4-8.2)
--- NOTE | 2021-01-05 13:43 | NUR ---
DISCHARGE HELD PER DR ROSENTHAL
--- NOTE | 2021-01-05 18:34 | NUR ---
PT WAS TO BE DISCHARGED TODAY TO HOME WITH . DR ROSENTHAL HELD DISCHARGE TODAY, PLAN IS TO DISCHARGE TOMORROW. PT IS A 1 PERSON ASSIST, DISCHARGE WILL BE REEVAUATED IN THE AM. NO ACUTE CHANGES NOTED THIS SHIFT, WILL CONTINUE TO MONITOR AND REPORT TO ONCOMING RN.
--- NOTE | 2021-01-06 04:12 | NUR ---
BUMPER AND PAINTER SUMMARY PT A&OX3, FORGETFUL AT TIMES, MILDLY CONFUSED AT TIMES BUT EASILY REDIRECTABLE. PT CALM AND RESTED IN BED T/O SHIFT. MEDICATED FOR BACK PAIN X1 PER EMAR. NO C/O CP, SOB, OR N&V. NO ACUTE CHANGES NOTED TO PATIENT THIS SHIFT. BED AT LOWEST POSITION W/ ALARM ON. CALL LIGHT WITHIN REACH.
[2021-01-06 05:06] LABS: International Normalized Ratio 2.21; Prothrombin Time Results 22.6 Sec (9.7-11.5)
--- NOTE | 2021-01-06 15:27 | NUR ---
PT HAS BECOME UPSET, VERBALLY BERATING HIS , SPEAKING OF GOING HOME NO MATTER WHAT. REPORTS PT HALLUCINATING BUT THIS RN HAS NOT HEARD OR OBSERVED PT HALLUCINATING. SPOKE WITH DR ROSENTHAL VIA TELEPHONE, HE IS AWARE OF CHANGE IN PT'S BEHAVIOUR, THIS IS NEW PER THE AND IS A CHANGE FROM YESTERDAY. WILL CONTINUE TO MONITOR.
[2021-01-07 05:21] LABS: International Normalized Ratio 2.24; Prothrombin Time Results 22.9 Sec (9.7-11.5)
[2021-01-07 05:23] LABS: Anion Gap 2 mmol/L (6-16); Blood Urea Nitrogen 23 mg/dL (8-24); Bun/Creatinine Ratio 19.5 (12.0-20.0); CO2, Blood 33 mmol/L (21-32); Calcium, Blood 8.7 mg/dL (8.5-10.1); Chloride, Blood 105 mmol/L (98-108); Creatinine, Blood 1.18 mg/dL (0.60-1.20); Glomerular Filtration Rate >60 (60-); Glucose, Blood 92 mg/dL (70-99); Potassium, Blood 4.2 mmol/L (3.5-5.5); Sodium, Blood 140 mmol/L (136-145)
--- NOTE | 2021-01-07 06:03 | NUR ---
AMMONIA BOX OPERATOR SUMMARY PT A&O TO SELF AND FAMILY, PLEASANTLY CONFUSED AND FORGETFUL AT TIMES. EASILY REDIRECTABLE BY STAFF. PT's W/ PT IN ROOM EARLY IN THE SHIFT, PT's DEEPLY SADDENED AND EMOTIONAL D/T PT's CHANGE IN BEHAVIOR. EMOTIONAL SUPPORT AND CALM REASSURANCE PROVIDED TO PT's . PT MEDICATED FOR BACK PAIN PER EMAR. NO C/O CP, SOB, OR N&V. PT RESTED IN BED MOST OF SHIFT, PT IS INCONTINENT, ATTENDS IN PLACE. BED AT LOWEST POSITION W/ ALARM ON, CALL LIGHT WITHIN REACH.
== END 2021-01-07 16:38 | disposition home health service (06) ==
LOC: ER 17:39 → MEDS 17:40
PROVIDERS: Emergency Medicine; Internal Medicine; ADMIT Internal Medicine
DX: S22.088A Other fracture of T11-T12 vertebra, initial encounter for closed fracture (principal); W01.0XXA Fall on same level from slipping, tripping and stumbling without subsequent striking against object, initial encounter; I48.20 Chronic atrial fibrillation, unspecified; I11.0 Hypertensive heart disease with heart failure; I50.32 Chronic diastolic (congestive) heart failure; F03.90 Unspecified dementia, unspecified severity, without behavioral disturbance, psychotic disturbance, mood disturbance, and anxiety; I82.409 Acute embolism and thrombosis of unspecified deep veins of unspecified lower extremity; D68.9 Coagulation defect, unspecified; I35.0 Nonrheumatic aortic (valve) stenosis; I25.10 Atherosclerotic heart disease of native coronary artery without angina pectoris; F32.9 Major depressive disorder, single episode, unspecified; M10.9 Gout, unspecified; F17.210 Nicotine dependence, cigarettes, uncomplicated; K59.00 Constipation, unspecified; K52.9 Noninfective gastroenteritis and colitis, unspecified; Z66 Do not resuscitate; Z79.02 Long term (current) use of antithrombotics/antiplatelets; Z79.891 Long term (current) use of opiate analgesic; Z91.81 History of falling; Y93.01 Activity, walking, marching and hiking; Z79.01 Long term (current) use of anticoagulants; Z95.5 Presence of coronary angioplasty implant and graft; Z86.16 Personal history of COVID-19
CPT/HCPCS: 36415; 70450; 72070; 72100; 72128; 80048; 80053; 80162; 81003; 85025; 85610; 93005; 93010; 96374; 96375; 96376; 97110; 97116; 97162; 97165; 97535; 99285-25; A9270; G0378; J1170; J1885; J2405; J3010; J7030